=== PATIENT | female | born 1945 | race Caucasian/White ===

== ENCOUNTER 2019-06-10 11:38 | Emergency (ER) | payer OTHER ==
[~2019-06-10] VITALS: Ht 162.6 cm; Wt 81.7 kg
[2019-06-10] MEDS ORDERED: DILTIAZEM ER180 M2 PO (11:53)
[2019-06-10] MEDS ORDERED: ASPIR 8181 M1 PO (11:54)
[2019-06-10] MEDS ORDERED: VITAMIN D1000 UNI2 PO (11:54)
[2019-06-10] MEDS ORDERED: NEXIUM 40 MG CA40 M1 PO (11:54)
[2019-06-10] MEDS ORDERED: COZAAR 25 MG TA25 M1 PO (11:54)
[2019-06-10] MEDS ORDERED: LIPITOR 20 MG T20 M1 PO (11:55)
[2019-06-10] MEDS ORDERED: LIDOCAINE VISC100 ML TOP (12:13)
[2019-06-10 12:25] VITALS: BP 160/69
== END 2019-06-10 12:25 | disposition home or self-care (01) ==
LOC: M.ERS 11:38
DX: K64.8 Other hemorrhoids (principal); I10 Essential (primary) hypertension; E78.5 Hyperlipidemia, unspecified